=== PATIENT | female | born 1985 | race Caucasian/White ===

== ENCOUNTER 2020-03-25 16:43 | Emergency (ER) | payer MEDICARE, OTHER ==
[~2020-03-25] VITALS: Ht 175.3 cm; Wt 87.6 kg
[2020-03-25] MEDS ORDERED: HYDROXYZINE HCL 25 MG TAB PO SCH (17:30)
[2020-03-25] MEDS ORDERED: HYDROXYZINE HCL25 MG PO (17:33)
[2020-03-25 17:47] VITALS: BP 120/74
== END 2020-03-25 17:50 | disposition home or self-care (01) ==
LOC: FSED 17:13
DX: R06.4 Hyperventilation (principal); F41.9 Anxiety disorder, unspecified; G24.9 Dystonia, unspecified; F32.9 Major depressive disorder, single episode, unspecified
CPT/HCPCS: 99283; J3410